=== PATIENT | male | born 1940 | race Caucasian/White ===

== ENCOUNTER 2022-10-30 18:22 | Emergency (ER) | payer OTHER ==
[2022-10-30] MEDS ORDERED: Ondansetron PF 4 MG/2 ML Vial ONE (19:14)
[2022-10-30] MEDS ORDERED: Morphine 4 MG/ML VIAL ONE (19:14)
[2022-10-30] MEDS ORDERED: Bacitracin 1 PK ONE (20:09)
[2022-10-30 20:10] LABS: INR-International Normal Ratio 1.2; PTT 36.9 sec (22.9-36.1); Prothrombin Time 15.4 sec (12.0-14.7)
[2022-10-30 20:19] LABS: Hemoglobin 9.8 g/dL (14.0-18.0); Mean Corpuscular HGB CONC 34.4 g/dL (32.0-36.0); Mean Corpuscular Hemoglobin 34.2 pg (27.0-31.0); Mean Corpuscular Volume 99.4 fl (78.0-98.0); Mean Platelet Volume 7.6 fL (7.4-10.4); Platelet Count 293 10x3/uL (130-400); RBC Distribution Width 11.7 % (11.5-14.5); Red Blood Cell (RBC) Count 2.87 mill/uL (4.70-6.10); White Blood Cell (WBC) Count 30.8 10x3/uL (4.8-10.8)
[2022-10-30 20:28] LABS: ALT (SGPT) 21 U/L (8-55); AST (SGOT) 26 U/L (5-34); Alkaline Phosphatase 69 U/L (40-110); Anion Gap 17 mmol/L (10-20); BUN (Urea Nitrogen) 10 mg/dL (8.4-25.7); Bilirubin, Total Less than 1.0 mg/dL (0.2-1.2); Calc. Creatinine Clearance 0 mL/min (70-130); Calcium 8.8 mg/dL (7.8-10.44); Carbon Dioxide 22 mmol/L (23-31); Chloride 101 mmol/L (98-107); Estimated GFR 99; Globulin 4.5 g/dL (2.4-3.5); Glucose 118 mg/dL (83-110); Potassium 5.9 mmol/L (3.5-5.1); Protein, Total 7.5 g/dL (5.8-8.1); Sodium 134 mmol/L (136-145)
[2022-10-30 20:37] LABS: Band 10 % (5-11); Hypochromia SLIGHT = 6-15 cells (100X) (0-5/hpf); MDiff Complete? YES; Monocytes 12 % (0-10); Neutrophil 78 % (42-75); Platelet Morphology Comment Appears Adequate
[2022-10-30] MEDS ORDERED: Lidocaine 1% PF 5 ML VIAL ONE (20:52)
[2022-10-30] MEDS ORDERED: Cefepime 2 GM VIAL ONE (21:17)
== END 2022-10-31 00:53 | disposition home or self-care (01) ==
LOC: ERS 18:22
DX: S42.211A Unspecified displaced fracture of surgical neck of right humerus, initial encounter for closed fracture (principal); S42.351A Displaced comminuted fracture of shaft of humerus, right arm, initial encounter for closed fracture; A41.9 Sepsis, unspecified organism; X58.XXXA Exposure to other specified factors, initial encounter
CPT/HCPCS: 12002; 29105; 36415; 71045; 80053; 83605; 84484; 85025; 85610; 85730; 87040; 93005; 96374; 96375; 96376; J0692; J2270; J2405